=== PATIENT | female | born 1975 | race Caucasian/White ===

== ENCOUNTER → 2016-12-05 | Outpatient (CLI) | payer OTHER ==
[2016-12-05 08:09] LABS: HEMATOCRIT 41.8 % (37.0-47.0); HEMOGLOBIN 14.2 g/dL (12.0-16.0); MEAN CORPUSCULAR HEMOGLOBIN 29.6 PG (27-31); MEAN CORPUSCULAR VOLUME 87.1 FL (81-99); MEAN PLATELET VOLUME 9.7 FL (7.4-12.2); RED BLOOD COUNT 4.8 10^6/uL (4.20-5.40)
[2016-12-05 08:17] LABS: BLOOD UREA NITROGEN 9 mg/dL (7-22); CHOL/HDL RATIO 4.08 RATIO (0-4.0); EST GLOMERULAR FILTRATION > 60 (>60 ml/min/1.73m(2)); HDL CHOLESTEROL 35 mg/dL (40-150); SERUM ALBUMIN 3.9 g/dL (3.5-4.8); SERUM CHOLESTEROL 143 mg/dL (120-200)
[2016-12-05 08:39] LABS: VITAMIN D 25-HYDROXY 39.8 NG/ML (30-100)
[2016-12-05 09:40] LABS: FREE T4 (FREE THYROXINE) 1.37 ng/dL (0.93-1.71)
== END ==
LOC: LAB 07:26
PROVIDERS: ATTEND Nurse Practitioner Family
DX: Z00.00 Encounter for general adult medical examination without abnormal findings (principal); E03.9 Hypothyroidism, unspecified; K60.0 Acute anal fissure; K92.1 Melena
CPT/HCPCS: 36415; 80053; 80061; 82306; 82607; 82746; 84439; 84443; 85027

== ENCOUNTER → 2017-01-14 | Outpatient (CLI) | payer OTHER ==
--- NOTE | 2017-01-14 16:15 | DI ---
BILATERAL BREAST ULTRASOUND, 01/14/2017 2:50 PM: Clinical History: Abnormal screening mammograms. A well-circumscribed nodule measuring about 25 mm wa s located between the 4:00-5:00 position, and a similar lesion was located in the left breast between the 11:00-2:00 position. Both of these lesions were located just anterior to the pectoralis major mu scle. The patient has had previous bilateral reduction mammoplasties. Scans are performed by the technologist and myself through all four quadrants of both breasts with e high resolution linear array probe. Color Doppler ultrasound was also performed. In the right breast is a well-circumscribed inhomogeneous ovoid solid lesion at the 3:00 position madina suring approximately 28 x 28 x 10 mm consistent with a benign fibroadenoma. A smaller similar lesion measuring less than 10 mm in diameter is located at the 6:00 position. There are 2 small 5 mm diamete r simple cysts located at the 11:00 and 12:00 positions anteriorly. In the left breast, there is an i nhomogeneous hypoechoic well-circumscribed lesion measuring 15 x 20 x 25 mm located at the 10:00 posi tion just anterior to the pectoralis major muscle. There is a similar lesion located at the 3:00 posi tion measuring 6 x 15 x 16 mm. A third fibroadenoma is seen at the 2:00 position just deep to the ski n and this measures 5 x 5 x 10 mm. No other solid masses are seen. Follow Up: As long as this patient remains clinically asymptomatic, she may reenter a routine breast surveillance protocol consisting of monthly self breast exams if she so desires, and mammograms every year. BIRADS Category: 2. Benign finding. The large lesion in the right breast is highly mobile and is at t he 3:00 position and represents a benign fibroadenoma. There is a smaller fibroadenoma measuring less than 10 mm at the 6:00 position. The large lesion in the left breast represents a fibroadenoma at th e 10:00 position. There are smaller lesions in the left breast at the 2:00 and 3:00 positions that al so or fibroadenomas. Assessment: Benign finding.
== END ==
LOC: US 14:47
PROVIDERS: ATTEND Nurse Practitioner Family
DX: R92.8 Other abnormal and inconclusive findings on diagnostic imaging of breast (principal); D24.2 Benign neoplasm of left breast; D24.1 Benign neoplasm of right breast
CPT/HCPCS: 76641

== ENCOUNTER 2017-02-01 08:42 | Day surgery (SDC) | payer OTHER ==
[~2017-02-01 08:42] MED LIST: KETAMINE 100 MG/1 ML - 5 ML ONE; LIDOCAINE W/ SODIUM BICARB 0.5 ML SYR ONE; Lactated Ringers 1,000 ML PRIMARY IV ONE; MIDAZOLAM 5 MG/1 ML ONE; ceFAZolin Inj 2gm (Premix) 50 ML IV ONE; fentaNYL Inj 250 MCG/5 ML VIAL ONE
[2017-02-01] MEDS ORDERED: LIDOCAINE HCL 1%/EPI 1:100,000 - 20 ML VIAL ONE (09:23)
[2017-02-01] MEDS ORDERED: BUPIVACAINE 0.5% W/ EPI - 10 ML VIAL ONE (09:23)
[2017-02-01 11:33] VITALS: RESP 12
--- NOTE | 2017-02-01 11:39 | GEN.OPNOTE ---
Operative Note Surgery Date: 02/01/17 Preoperative Diagnosis: Painful breast mass bilateral Postoperative Diagnosis: Same Procedure: Excision of fibroadenomas of the right and left breast Surgeon: Elie Colin MD Anesthesia Provider: Niesha Rodriges CRNA Anesthesia Type: Local, MAC Estimated Blood Loss (mL): 2 Fluids: LR please see anesthesia notes. 2% Xylocaine mixed with 0.5 Marcaine 50 -50 mixture total of 10 mL used Pathology: Right breast fibroadenoma and left breast fibroadenoma sent to pathology Indications: This is patient had bilateral breast reductions. She now has painful mass in the medial aspect of both breasts.: Ultrasound and mammogram patient has multiple lesions these appeared be fibroadenomas. Because the 2 lesions are tender to touch patient would like to have them removed. This also gives us an opportunity to do a biopsy of the lesions Findings: Fibroadenomas bilateral Operative Summary: Patient is placed in supine position. Given IV sedation. Prepped draped sterile fashion. Timeout performed per protocols. We'll, the right breast initially infiltrated local anesthetic circumareolar and around the lesion. Hemostased electrocautery after a circumareolar incision. I used electrocautery dissect down to the fibroadenoma. I then grasped fibroadenoma with Allis clamps. Then using electrocautery completely remove the fibroadenoma. There is adequate hemostasis. Wound was closed with 4-0 Vicryl continuous running septic restitch. Steri-Strips are applied. I then switched sides. Infiltrate local anesthetic in a similar fashion. Made a circumareolar incision. He is left cautery dissected fibroadenoma. Closed in a similar fashion.
[2017-02-01 12:56] VITALS: TEMP 97.6
== END 2017-02-01 12:08 | disposition home or self-care (01) ==
LOC: SDSC 08:42
PROVIDERS: ATTEND Surgery
DX: D24.2 Benign neoplasm of left breast (principal); D24.1 Benign neoplasm of right breast
CPT/HCPCS: 19120 ×2; J0690; J2250; J2704; J3010; J7120